=== PATIENT | male | born 1965 | race Caucasian/White ===

== ENCOUNTER 2022-02-03 10:09 | Observation (INO) | payer OTHER ==
[~2022-02-03] VITALS: Ht 182.9 cm; Wt 95.0 kg
[2022-02-03] MEDS ORDERED: PREDNISONE5 MG PO (10:27)
[2022-02-03] MEDS ORDERED: ALBUTEROL SUL0.083 % IN (10:28)
[2022-02-03 11:12] LABS: HEMATOCRIT 43.3 % (39.0-50.0); HEMOGLOBIN 14.2 g/dl (14.0-18.0); IMMATURE GRANULOCYTES 0.1 % (0.0-5.0); MEAN CELL VOLUME 94.1 fL CALC (80.0-100.0); MEAN CORPUSCULAR HGB 30.9 pG CALC (26.0-32.0); MEAN CORPUSCULAR HGB CONC 32.8 g/dL CAL (32.0-36.0); NEUT# 8.22 thou/uL (1.82-7.42); RED BLOOD COUNT 4.6 mill/uL (4.70-6.10); RED CELL DISTRI WIDTH 12.8 % (11.5-15.5)
[2022-02-03 11:16] LABS: ALBUMIN 4.8 g/dL (3.2-5.0); ALKALINE PHOSPHATASE 62 u/l (38-126); ANION GAP 15 (6-22 (CALC)); BILIRUBIN, TOTAL 0.6 mg/dL (0.0-1.4); BUN 10 mg/dL (9-20); BUN/CREATININE RATIO 9 (12-20 (CALC)); CARBON DIOXIDE 27 mmol/l (22-30); CHLORIDE 100 mmol/l (95-108); CREATININE 1.1 mg/dL (0.7-1.3); GFR > 60 ML/MIN (>=60 (CALC)); GFR FOR AFR.AMER. > 60 ML/MIN (>=60 (CALC)); POTASSIUM 4.3 mmol/l (3.5-5.1); SGOT/AST 37 u/l (17-59); SODIUM 137 mmol/l (137-146)
[2022-02-03 11:28] LABS: MYOGLOBIN 290 ng/mL (0 - 121)
--- NOTE | 2022-02-03 12:00 | NUR ---
PATIENT EXPERIENCES SOME RELIEF SINCE ARRIVAL. DOES NOT LIKE WEARING BP CUFF AND TAKES IT OFF.
--- NOTE | 2022-02-03 13:54 | NUR ---
PATIENT RESTING IN BED. TOOK OFF BP CUFF AGAIN.
[2022-02-03 13:57] VITALS: BP 130/82
--- NOTE | 2022-02-03 14:44 | NUR ---
REPORT GIVEN TO DANIELA. TAKING PATIENT TO ROOM 274.
--- NOTE | 2022-02-03 14:52 | NUR ---
PT ARRIVED TO FLOOR VIA STRETCHER ACCOMPAINED BY ER STAFF. PT ALERT AND ORIENTED X4. NO APPARENT DISTRESS NOTED. O2 @ 3L/M VIA NC, SAT 96%. INCREASED SOB WITH AUDIBLE WHEEZING WITH EXERTION. PT DENIES ANY PAIN OR DISCOMFORT. PT ORIENTED TO ROOM AND CALL LIGHT SYSTEM. DISCUSS POC AND SAFETY PRECAUTIONS. PT VERBALIZED UNDERSTANDING. WILL CONTINUE TO MONITOR.
[2022-02-03 16:20] LABS: URINE BILIRUBIN - DIPSTICK NEGATIVE (NEGATIVE); URINE BLOOD DIPSTICK SMALL (NEGATIVE); URINE COLOR YELLOW; URINE GLUCOSE - DIPSTICK NEGATIVE (NEGATIVE); URINE KETONE TRACE mg/dL (NEGATIVE); URINE LEUK ESTERASE NEGATIVE (NEGATIVE); URINE PROTEIN - DIPSTICK NEGATIVE (NEG-TRACE); URINE SPECIFIC GRAVITY 1.025; URINE UROBILINOGEN - DIPSTICK 0.2 E.U./dL (0.2)
[2022-02-03 16:29] LABS: URINE NITRITE - DIPSTICK NEGATIVE (Negative)
[2022-02-03 16:30] LABS: URINE RBC 0-2 RBC/hpf (0-5); URINE WBC 0-2 WBC/hpf (0-5)
[2022-02-03 17:30] VITALS: BP 162/87
--- NOTE | 2022-02-03 20:00 | NUR ---
PHYSICAL ASSESMENT COMPLETE. PT CURRENTLY DENIES PAIN OR DISCOMFORT. SCHEDULED MEDICATIONS AND PRN MEDICATION ADMINISTERED, SEE E-MAR. PT DENIES ANY NEEDS AT THIS TIME. PLAN OF CARE REVIEWED, PT DENIES QUESTIONS, VERBALIZES UNDERSTANDING. ITEMS WITHIN REACH, BED LOCKED IN LOW POSITION W/ BEDRAILS UP X2. CALL COY WITHIN REACH, AGREES TO CALL PRN.
[2022-02-04] VITALS: BP 164/86
[2022-02-04 02:39] VITALS: BP 162/74
--- NOTE | 2022-02-04 03:00 | NUR ---
PT LAYING IN BED WITH EYES CLOSED, APPEARS TO BE SLEEPING, APPEARS COMFORTABLE AND IN NO DISTRESS.ITEMS REMAIN WITHIN REACH, CALL COY REMAINS WITHIN REACH. BED REMAINS LOCKED AND IN LOW POSITION WITH BEDRAILS UP X2. WILL CONTINUE TO MONITOR.
[2022-02-04 05:22] LABS: HEMATOCRIT 41.2 % (39.0-50.0); HEMOGLOBIN 13.7 g/dl (14.0-18.0); MEAN CELL VOLUME 93.2 fL CALC (80.0-100.0); MEAN CORPUSCULAR HGB CONC 33.3 g/dL CAL (32.0-36.0); RED BLOOD COUNT 4.42 mill/uL (4.70-6.10); RED CELL DISTRI WIDTH 12.7 % (11.5-15.5)
[2022-02-04 05:35] LABS: ANION GAP 15 (6-22 (CALC)); BUN 13 mg/dL (9-20); BUN/CREATININE RATIO 13 (12-20 (CALC)); CARBON DIOXIDE 23 mmol/l (22-30); CHLORIDE 101 mmol/l (95-108); GFR > 60 ML/MIN (>=60 (CALC)); GFR FOR AFR.AMER. > 60 ML/MIN (>=60 (CALC)); MAGNESIUM 2.2 mg/dL (1.6-2.3); POTASSIUM 4.6 mmol/l (3.5-5.1); SODIUM 134 mmol/l (137-146)
[2022-02-04 07:31] VITALS: BP 170/91
--- NOTE | 2022-02-04 07:34 | NUR ---
Patient is screened for PT interention and no immediate needs are identified at this time
--- NOTE | 2022-02-04 09:52 | NUR ---
GOT REPORT FROM DIRECTOR BUSINESS NURSE. PATIENT IS AOX4. DENIES ANY PAIN, HE HIREN C/O SOB ON ANY MOBILITY AND WHEN COUGHING. PATIENT STATES RIGHT NOW HE IS DOING OK.
[2022-02-04 15:41] VITALS: BP 132/63
--- NOTE | 2022-02-04 17:30 | NUR ---
PT REQUESTED NEB TX EARLY
[2022-02-04 19:42] VITALS: BP 123/66
--- NOTE | 2022-02-04 20:15 | NUR ---
PT SITTING IN BED; A&O X3. LABORED RESPIRATIONS; WHEEZES THROUGHOUT. PT HAS CLEAR PRODUCTIVE COUGH. O2 @ 3L VIA NASAL CANNULA IN PLACE. ACTIVE BOWEL SOUNDS X4 QUADRANTS. IV SITE HEALTHY AND PATENT. SAFETY PRECAUTIONS IN PLACE. CALL LIGHT WITHIN REACH.
--- NOTE | 2022-02-04 22:50 | NUR ---
PT C/O COUGH, REQUESTED ROBITUSSIN. ADMINISTERED COUGH MEDICATION. SAFETY PRECAUTIONS IN PLACE WITH CALL LIGHT IN REACH.
--- NOTE | 2022-02-05 00:20 | NUR ---
PT SLEEPING IN BED. NO DISTRESS OR PAIN NOTED. TELEMETRY AND SAFETY PRECAUTIONS IN PLACE. CALL LIGHT WITHIN REACH.
[2022-02-05 00:28] VITALS: BP 148/69
--- NOTE | 2022-02-05 04:00 | NUR ---
PT SLEEPING. NO DISTRESS OR PAIN NOTED. TELEMETRY AND SAFETY PRECAUTIONS IN PLACE. CALL LIGHT WITHIN REACH.
[2022-02-05 04:38] VITALS: BP 128/78
[2022-02-05 05:42] LABS: HEMATOCRIT 38.1 % (39.0-50.0); HEMOGLOBIN 12.6 g/dl (14.0-18.0); MEAN CELL VOLUME 94.5 fL CALC (80.0-100.0); MEAN CORPUSCULAR HGB 31.3 pG CALC (26.0-32.0); MEAN CORPUSCULAR HGB CONC 33.1 g/dL CAL (32.0-36.0); RED BLOOD COUNT 4.03 mill/uL (4.70-6.10); RED CELL DISTRI WIDTH 12.8 % (11.5-15.5)
[2022-02-05 06:03] LABS: ANION GAP 13 (6-22 (CALC)); BUN 18 mg/dL (9-20); BUN/CREATININE RATIO 18 (12-20 (CALC)); CARBON DIOXIDE 26 mmol/l (22-30); CHLORIDE 101 mmol/l (95-108); GFR > 60 ML/MIN (>=60 (CALC)); GFR FOR AFR.AMER. > 60 ML/MIN (>=60 (CALC)); MAGNESIUM 2.3 mg/dL (1.6-2.3); POTASSIUM 4.2 mmol/l (3.5-5.1); SODIUM 136 mmol/l (137-146)
[2022-02-05 06:54] VITALS: BP 137/61
--- NOTE | 2022-02-05 08:00 | NUR ---
GOT REPORT FROM SCHOOL CLERK NURSE. PATIENT IS AOX4. DENIES ANY CHEST PAIN OR SHORTNESS OF BREATH. PATIENT HAS A COUGH, I OFFERED COUGH MEDICATION BUT PATIENT DID NOT WANT TO TAKE RIGHT NOW. ADVISED PATIENT TO LET ME KNOW WHEN HE IS READY FOR THE MEDICATION. PATIENT VERBALIZED UNDERSTANDING.
[2022-02-05 09:30] VITALS: BP 146/76
[2022-02-05 11:30] VITALS: BP 146/76
--- NOTE | 2022-02-05 12:00 | NUR ---
PATIENT IS RESTING ON SIDE OF BED ON PHONE. PATIENT DENIES ANY CHEST, SOB, OR DISCOMFORT. NO QUESTIONS OR CONCERNS AT THIS TIME.
[2022-02-05] MEDS ORDERED: ZITHROMAX500 MG PO (12:43)
[2022-02-05] MEDS ORDERED: MEDDOSEPAK PO (12:43)
[2022-02-05] MEDS ORDERED: VENTOLIN HFA108 MCG IN (12:44)
--- NOTE | 2022-02-05 13:04 | NUR ---
COMPLETED WALK TEST WITH PATIENT. PATIENT PASSED WALKED TEST. MADE AWARE.
[2022-02-05] MEDS ORDERED: ROBITUSSIN30 MG/5 ML PO (14:10)
--- NOTE | 2022-02-05 15:13 | NUR ---
Discharge instructions given. Patient verbalizes understanding of same. Discharged in stable condition via Wheelchair to Home with family. All belongings sent with pt.
== END 2022-02-05 15:10 | disposition home or self-care (01) | DRG 192 ==
LOC: ED 10:09 → ED-I 12:24 → ED 12:41 → MS2 12:42
PROVIDERS: Emergency Medicine; ADMIT Hospitalist; ATTEND Hospitalist
DX: J44.1 Chronic obstructive pulmonary disease with (acute) exacerbation (principal); R09.02 Hypoxemia; F17.210 Nicotine dependence, cigarettes, uncomplicated; Z20.822 Contact with and (suspected) exposure to COVID-19
CPT/HCPCS: G0378; J1650; Q9967

== ENCOUNTER 2022-06-05 05:08 | Emergency (ER) | payer OTHER ==
[~2022-06-05] VITALS: Ht 182.9 cm; Wt 95.0 kg
[~2022-06-05 05:08] MED LIST: ALBUTEROL SUL0.083 % IN; MEDDOSEPAK PO; PREDNISONE5 MG PO; ROBITUSSIN30 MG/5 ML PO; VENTOLIN HFA108 MCG IN; ZITHROMAX500 MG PO
[2022-06-05 05:44] VITALS: BP 141/87
[2022-06-05 05:48] LABS: HEMATOCRIT 40.1 % (39.0-50.0); HEMOGLOBIN 13.6 g/dl (14.0-18.0); IMMATURE GRANULOCYTES 0.2 % (0.0-5.0); MEAN CELL VOLUME 89.3 fL CALC (80.0-100.0); MEAN CORPUSCULAR HGB 30.3 pG CALC (26.0-32.0); MEAN CORPUSCULAR HGB CONC 33.9 g/dL CAL (32.0-36.0); NEUT# 5.65 thou/uL (1.82-7.42); RED BLOOD COUNT 4.49 mill/uL (4.70-6.10); RED CELL DISTRI WIDTH 12.3 % (11.5-15.5)
[2022-06-05 06:34] LABS: ALBUMIN 4.5 g/dL (3.2-5.0); ALKALINE PHOSPHATASE 78 u/l (38-126); ANION GAP 12 (6-22 (CALC)); BUN 13 mg/dL (9-20); BUN/CREATININE RATIO 13 (12-20 (CALC)); CARBON DIOXIDE 23 mmol/l (22-30); CHLORIDE 104 mmol/l (95-108); CREATININE 1.1 mg/dL (0.7-1.3); GFR FOR AFR.AMER. > 60 ML/MIN (>=60 (CALC)); GFR OTHER RACES > 60 ML/MIN (>=60 (CALC)); POTASSIUM 4.4 mmol/l (3.5-5.1); SGOT/AST 56 u/l (17-59); SODIUM 135 mmol/l (137-146); TOTAL PROTEIN 7.4 g/dL (6.3-8.2)
[2022-06-05 06:40] LABS: BILIRUBIN, TOTAL 0.2 mg/dL (0.0-1.4)
[2022-06-05 06:45] VITALS: BP 145/83
[2022-06-05 06:45] LABS: MYOGLOBIN 119 ng/mL (0 - 121)
[2022-06-05] MEDS ORDERED: SYMBICORT1 AE1 IN (06:57)
[2022-06-05] MEDS ORDERED: ROBITUSSIN AC10 ML PO (06:57)
[2022-06-05] MEDS ORDERED: PREDNISONE50 MG PO (06:57)
[2022-06-05 07:01] VITALS: BP 145/83
== END 2022-06-05 07:04 | disposition home or self-care (01) | DRG 192 ==
LOC: ED 05:08
PROVIDERS: Family Medicine
DX: J44.1 Chronic obstructive pulmonary disease with (acute) exacerbation (principal); T48.6X6A Underdosing of antiasthmatics, initial encounter; Z91.128 Patient's intentional underdosing of medication regimen for other reason; Z87.891 Personal history of nicotine dependence; Z20.822 Contact with and (suspected) exposure to COVID-19

== ENCOUNTER 2022-10-07 06:56 | Emergency (ER) | payer OTHER ==
[~2022-10-07] VITALS: Ht 182.9 cm; Wt 97.0 kg
[2022-10-07] VITALS (10 sets, daily range): BP systolic 127–150; BP diastolic 68–94
[~2022-10-07 06:56] MED LIST changes: +PREDNISONE50 MG PO; +ROBITUSSIN AC10 ML PO; +SYMBICORT1 AE1 IN
[2022-10-07 07:35] LABS: HEMATOCRIT 43.2 % (39.0-50.0); HEMOGLOBIN 14.5 g/dl (14.0-18.0); IMMATURE GRANULOCYTES 0.2 % (0.0-5.0); MEAN CELL VOLUME 91.5 fL CALC (80.0-100.0); MEAN CORPUSCULAR HGB 30.7 pG CALC (26.0-32.0); MEAN CORPUSCULAR HGB CONC 33.6 g/dL CAL (32.0-36.0); NEUT# 3.41 thou/uL (1.82-7.42); RED BLOOD COUNT 4.72 mill/uL (4.70-6.10); RED CELL DISTRI WIDTH 13.4 % (11.5-15.5)
[2022-10-07 08:05] LABS: ALBUMIN 4.5 g/dL (3.2-5.0); ALKALINE PHOSPHATASE 52 u/l (38-126); ANION GAP 17 (6-22 (CALC)); BUN 11 mg/dL (9-20); BUN/CREATININE RATIO 10 (12-20 (CALC)); CARBON DIOXIDE 20 mmol/l (22-30); CHLORIDE 102 mmol/l (95-108); CREATININE 1.1 mg/dL (0.7-1.3); GFR FOR AFR.AMER. > 60 ML/MIN (>=60 (CALC)); GFR OTHER RACES > 60 ML/MIN (>=60 (CALC)); POTASSIUM 4.3 mmol/l (3.5-5.1); SGOT/AST 45 u/l (17-59); SODIUM 135 mmol/l (137-146); TOTAL PROTEIN 7.4 g/dL (6.3-8.2)
[2022-10-07 08:06] LABS: BILIRUBIN, TOTAL 0.3 mg/dL (0.0-1.4)
[2022-10-07] MEDS ORDERED: IPRATROPIU0.5 MG/3 M IN (08:56)
[2022-10-07] MEDS ORDERED: PREDNISONE50 MG PO (08:56)
[2022-10-07] MEDS ORDERED: PAXLOVID 10 X 11 TAB PO (08:56)
[2022-10-07] MEDS ORDERED: TESSALON PERLE100 MG PO (09:01)
== END 2022-10-07 09:18 | disposition home or self-care (01) | DRG 178 ==
LOC: ED 06:56
PROVIDERS: Emergency Medicine
DX: U07.1 COVID-19 (principal); J44.1 Chronic obstructive pulmonary disease with (acute) exacerbation
CPT/HCPCS: J1650

== ENCOUNTER 2022-10-23 10:55 | Emergency (ER) | payer OTHER ==
[~2022-10-23] VITALS: Ht 182.9 cm; Wt 104.5 kg
[2022-10-23] VITALS (11 sets, daily range): BP systolic 134–164; BP diastolic 71–100
[~2022-10-23 10:55] MED LIST changes: +IPRATROPIU0.5 MG/3 M IN; +PAXLOVID 10 X 11 TAB PO; +TESSALON PERLE100 MG PO
[2022-10-23 11:27] LABS: HEMATOCRIT 39.8 % (39.0-50.0); HEMOGLOBIN 13.5 g/dl (14.0-18.0); IMMATURE GRANULOCYTES 0.3 % (0.0-5.0); MEAN CELL VOLUME 92.6 fL CALC (80.0-100.0); MEAN CORPUSCULAR HGB 31.4 pG CALC (26.0-32.0); MEAN CORPUSCULAR HGB CONC 33.9 g/dL CAL (32.0-36.0); NEUT# 5.77 thou/uL (1.82-7.42); RED BLOOD COUNT 4.3 mill/uL (4.70-6.10); RED CELL DISTRI WIDTH 13.1 % (11.5-15.5)
[2022-10-23 11:55] LABS: ALBUMIN 4.2 g/dL (3.2-5.0); ALKALINE PHOSPHATASE 53 u/l (38-126); ANION GAP 10 (6-22 (CALC)); BILIRUBIN, TOTAL 0.4 mg/dL (0.0-1.4); BUN 17 mg/dL (9-20); BUN/CREATININE RATIO 14 (12-20 (CALC)); CHLORIDE 104 mmol/l (95-108); CREATININE 1.3 mg/dL (0.7-1.3); GFR FOR AFR.AMER. > 60 ML/MIN (>=60 (CALC)); GFR OTHER RACES 57 ML/MIN (>=60 (CALC)); POTASSIUM 4.5 mmol/l (3.5-5.1); SGOT/AST 33 u/l (17-59); SODIUM 135 mmol/l (137-146); TOTAL PROTEIN 6.8 g/dL (6.3-8.2)
[2022-10-23 11:57] LABS: CARBON DIOXIDE 26 mmol/l (22-30)
== END 2022-10-23 12:24 | disposition short-term general hospital (02) | DRG 310 ==
LOC: ED 10:55
PROVIDERS: Family Medicine
DX: I48.91 Unspecified atrial fibrillation (principal); R00.1 Bradycardia, unspecified; J44.9 Chronic obstructive pulmonary disease, unspecified; J45.909 Unspecified asthma, uncomplicated

== ENCOUNTER 2024-11-28 03:58 | Emergency (ER) | payer OTHER ==
[~2024-11-28] VITALS: Ht 182.9 cm; Wt 102.0 kg
[~2024-11-28 03:58] MED LIST changes: +TRELEGY ELLIPTA1 AE1 IN
[2024-11-28] MEDS ORDERED: guaiFENesin-CODEINE 200-20 MG/10 ML UDC PO ONE (05:15)
[2024-11-28] MEDS ORDERED: IPRATROPIUM-Albuterol 0.5MG-2.5MG/3 ML NEB ONE (05:20)
[2024-11-28] MEDS ORDERED: predniSONE 20 MG/TAB PO ONE (05:25)
[2024-11-28 05:47] LABS: BASO% 0.4 % (0-3); EOS% 0.7 % (0-8); HEMOGLOBIN 14.3 g/dl (14.0-18.0); IMMATURE GRANULOCYTES 0.1 % (0.0-5.0); LYMPH% 19.5 % (15-41); MEAN CELL VOLUME 93.5 fL CALC (80.0-100.0); MEAN CORPUSCULAR HGB 31.8 pG CALC (26.0-32.0); MONO% 7.9 % (2-13); NEUT# 5.93 thou/uL (1.82-7.42); NEUT% 71.4 % (42-76); RED BLOOD COUNT 4.49 mill/uL (4.70-6.10)
[2024-11-28 05:49] LABS: ALBUMIN 4.7 g/dL (3.2-5.0); BILIRUBIN, TOTAL 0.7 mg/dL (0.2-1.3); CREATININE 1.2 mg/dL (0.7-1.3); TOTAL PROTEIN 7.1 g/dL (6.3-8.2)
[2024-11-28 05:51] LABS: POTASSIUM 4.8 mmol/l (3.5-5.1)
[2024-11-28] MEDS ORDERED: BENZONATATE200 MG PO (06:05)
[2024-11-28] MEDS ORDERED: VENTOLIN HFA IN (06:05)
[2024-11-28 06:17] VITALS: BP 143/81
== END 2024-11-28 06:20 | disposition home or self-care (01) | DRG 192 ==
LOC: ED 04:18
PROVIDERS: Family Medicine
DX: J44.1 Chronic obstructive pulmonary disease with (acute) exacerbation (principal); J06.9 Acute upper respiratory infection, unspecified; Z20.822 Contact with and (suspected) exposure to COVID-19